=== PATIENT | female | born 1970 | race Caucasian/White ===

== ENCOUNTER → 2016-11-15 | Outpatient (CLI) | payer BC ==
[~2016-11-15] MED LIST: BNC20 PO; HYDC25 PO; PANT40TA PO
[2016-11-15 10:46] LABS: ALT/SGPT 32 U/L (12-78); AST/SGOT 17 U/L (15-37); BLOOD UREA NITROGEN 19 mg/dl (7-18); BUN/CREATININE RATIO 27.6 (10-20); CALCIUM 9.3 mg/dl (8.5-10.1); CARBON DIOXIDE 26 mmol/L (21-32); CHLORIDE 108 mmol/L (98-107); CHOLESTEROL 160 mg/dl (0-200); CREATININE 0.68 mg/dl (0.60-1.20); GLUCOSE 93 mg/dl (70-99); POTASSIUM 3.8 mmol/L (3.5-5.1); SODIUM 143 mmol/L (136-145)
[2016-11-15 10:48] LABS: ALB/GLOB RATIO 0.9 (0.9-2); ALKALINE PHOSPHATASE 64 U/L (45-117); CHOLESTEROL/HDL RATIO 4.3; HDL CHOLESTEROL 37 mg/dl; LDL CHOLESTEROL CALCULATED 96 mg/dl; TRIGLYCERIDES 134 mg/dl (0-150); VERY LOW DENSITY LIPOPROT CALC 27 mg/dl
== END | disposition home or self-care (01) ==
LOC: C.LAB 09:16
PROVIDERS: ATTEND Family Medicine
DX: E78.00 Pure hypercholesterolemia, unspecified (principal)

== ENCOUNTER → 2017-04-14 | Outpatient (CLI) | payer BC ==
--- NOTE | 2017-04-15 13:41 | MAMMOGRAPHY REPORT ---
BILATERAL DIGITAL SCREENING MAMMOGRAM TOMOSYNTHESIS WITH CAD: 04/14/2017 CLINICAL HISTORY: Routine screening. Patient has no complaints. TECHNIQUE: Breast tomosynthesis in addition to standard 2D mammography was performed. Current study was also evaluated with a Computer Aided Detection (CAD) system. COMPARISON: Comparison is made to exams dated: 04/08/2016 mammogram, 03/02/2015 mammogram, 07/13/2013 ma mmogram, 10/14/2012 localization, 09/23/2012 ultrasound biopsy, and 09/13/2012 mammogram - [facility]. BREAST COMPOSITION: There are scattered areas of fibroglandular density in both breasts. FINDINGS: There is evidence of prior surgery in the right upper outer quadrant, and a stable asymmet ry in the lateral left breast. No suspicious mass, architectural distortion or cluster of suspicious microcalcifications is seen. IMPRESSION: ACR BI-RADS CATEGORY 1: NEGATIVE There is no mammographic evidence of malignancy. A 1 year screening mammogram is recommended. The pa tient will receive written notification of the results. Approximately 10% of breast cancers are not detected with mammography. A negative mammographic report should not delay biopsy if a clinically suggestive mass is present. Edith Mccall M.D. ay/:04/14/2017 17:49:17 Cardiac Exercise Physiologist: Olga KELLOGG)(Ped[place]), [facility] letter sent: Normal 1/2 BI-RADS Code: ACR BI-RADS Category 1: Negative
== END | disposition home or self-care (01) ==
LOC: C.MAMM 07:16
PROVIDERS: ATTEND Surgery
DX: Z12.31 Encounter for screening mammogram for malignant neoplasm of breast (principal)

== ENCOUNTER → 2017-05-18 | Outpatient (CLI) | payer BC ==
--- NOTE | 2017-05-18 07:50 | DIAGNOSTIC IMAGING REPORT ---
KUB HISTORY: Kidney stones. COMPARISON: KUB 08/26/2014. Abdomen and pelvis CT 02/14/2015. FINDINGS: The bowel gas pattern is unremarkable. There are no dilated loops of small bowel to suggest an obstruction. Punctate stone within the lower pole the left kidney. No right renal calculi. No ureteral calculi. Calcifications in the deep pelvis likely represent phleboliths. These remain unchanged. No pneumoperitoneum or pneumatosis. IMPRESSION: 1. Stable left-sided nephrolithiasis. 2. No right renal or ureteral calculi. Electronically signed by: Eduard Escamilla M.D. 05/18/2017 7:48 AM Dictated Date/Time: 05/18/2017 7:47 AM
[2017-05-18 10:32] LABS: ALT/SGPT 47 U/L (12-78); AST/SGOT 30 U/L (15-37); BLOOD UREA NITROGEN 13 mg/dl (7-18); BUN/CREATININE RATIO 21.2 (10-20); CALCIUM 8.7 mg/dl (8.5-10.1); CARBON DIOXIDE 26 mmol/L (21-32); CHLORIDE 106 mmol/L (98-107); CREATININE 0.63 mg/dl (0.60-1.20); GLUCOSE 97 mg/dl (70-99); POTASSIUM 3.7 mmol/L (3.5-5.1); SODIUM 142 mmol/L (136-145)
[2017-05-18 10:35] LABS: ALB/GLOB RATIO 0.7 (0.9-2); ALKALINE PHOSPHATASE 66 U/L (45-117); CHOLESTEROL 163 mg/dl (0-200); CHOLESTEROL/HDL RATIO 4.2; HDL CHOLESTEROL 39 mg/dl; LDL CHOLESTEROL CALCULATED 94 mg/dl; TRIGLYCERIDES 148 mg/dl (0-150); VERY LOW DENSITY LIPOPROT CALC 30 mg/dl
== END | disposition home or self-care (01) ==
LOC: C.LAB 06:59
PROVIDERS: ATTEND Nurse Practitioner Adult Health
DX: I10 Essential (primary) hypertension (principal); E78.2 Mixed hyperlipidemia; E03.9 Hypothyroidism, unspecified; E55.9 Vitamin D deficiency, unspecified; R10.9 Unspecified abdominal pain; N20.0 Calculus of kidney

== ENCOUNTER → 2017-05-22 | Outpatient (CLI) | payer BC | END | disposition home or self-care (01) | LOC: C.PAPS 16:01 | PROVIDERS: ATTEND Obstetrics & Gynecology | DX: Z01.419 Encounter for gynecological examination (general) (routine) without abnormal findings (principal) ==